=== PATIENT | female | born 1995 | race Caucasian/White ===

== ENCOUNTER → 2020-12-24 | Outpatient (CLI) | payer OTHER ==
--- NOTE | 2020-12-24 08:11 | US ---
EXAMINATION TYPE: US abdomen complete DATE OF EXAM: 12/24/2020 COMPARISON: NONE CLINICAL HISTORY: N92.6 Irregular menstruation, unspecified. Patient states no symptoms EXAM MEASUREMENTS: Liver Length: 16.0 cm Gallbladder Wall: 0.2 cm CBD: 0.4 cm Spleen: 10.5 cm Right Kidney: 11.3 x 4.5 x 4.1 cm Left Kidney: 11.6 x 4.5 x 4.0 cm Pancreas: wnl Liver: wnl Gallbladder: wnl Evidence for sonographic Dorsey's sign: no CBD: wnl Spleen: 2.7cm cyst Right Kidney: wnl Left Kidney: wnl Upper IVC: wnl Abd Aorta: wnl The liver is homogenous. The intrahepatic portion of the IVC and visualized abdominal aorta are with in normal limits. There is no evidence of cholelithiasis. Common bile duct is unremarkable. The vi sualized portions of the pancreas are homogenous. The spleen has incidental 2.7 cm lobulated thin-wa lled cyst with increased through transmission. Kidneys are symmetric and free of hydronephrosis. No renal lesions are seen. IMPRESSION: Incidental 2.7 cm thin-walled benign splenic cyst otherwise unremarkable study.
--- NOTE | 2020-12-24 08:12 | US ---
EXAMINATION TYPE: US pelvic complete DATE OF EXAM: 12/24/2020 COMPARISON: NONE CLINICAL HISTORY: pain. Irregular heavy periods, 12, para 5, miscarriage 7, history of tubal ligation TECHNIQUE: . Transabdominal sonographic images of the pelvis were acquired. Date of LMP: 2 weeks ago EXAM MEASUREMENTS: Uterus: 7.9 x 3.4 x 5.5 cm Endometrial Stripe: 0.6 cm Right Ovary: 3.1 x 1.5 x 1.7 cm Left Ovary: 2.9 x 2.1 x 2.3 cm 1. Uterus: anteverted, 1.3cm nabothian cyst 2. Endometrium: appears wnl 3. Right Ovary: wnl 4. Left Ovary: wnl 5. Bilateral Adnexa: wnl 6. Posterior cul-de-sac: wnl Normal size ovaries with scattered peripheral follicles. There is anteverted uterus. Tiny nabothian c yst towards end of study. No free fluid. IMPRESSION: Unremarkable study.
== END | disposition home or self-care (01) ==
LOC: RADUSWWP 06:59
PROVIDERS: ATTEND Family Medicine
DX: N92.6 Irregular menstruation, unspecified (principal)
CPT/HCPCS: 76700; 76856

== ENCOUNTER 2024-05-27 21:09 | Emergency (ER) | payer OTHER ==
[2024-05-27] MEDS: SODIUM CHLORIDE 0.9% 1,000 ML IV ONE (21:49)
[2024-05-27] MEDS: ONDANSETRON 4 MG/2 ML VIAL IVP STA (21:49)
[2024-05-27 21:57] LABS: Basophils # (A) 0.1 k/uL (0-0.2); Basophils % (A) 1 %; Eosinophils # (A) 0.2 k/uL (0-0.7); Eosinophils % (A) 2 %; HCT 35.3 % (34.0-46.0); Lymphocytes # (A) 2.4 k/uL (1.0-4.8); Lymphocytes % (A) 35 %; MCH 29.3 pg (25.0-35.0); MCHC 34.1 g/dL (31.0-37.0); MCV 86.1 fL (80.0-100.0); Mean Platelet Volume 8.7; Monocytes # (A) 0.4 k/uL (0-1.0); Monocytes % (A) 5 %; Neutrophils # (A) 3.8 k/uL (1.3-7.7); Neutrophils % (A) 55 %; Platelet Count 215 k/uL (150-450); RDW 13.2 % (11.5-15.5)
[2024-05-27 22:00] LABS: Appearance,Urine Cloudy (Clear); Bilirubin,Urine Negative (Negative); Blood,Urine Negative (Negative); Color,Urine Colorless; Glucose,Urine (UA) Negative (Negative); Ketones,Urine Negative (Negative); Leukocyte Esterase,Urine Large (Negative); Mucus,Urine Rare /hpf; Nitrite,Urine Negative (Negative); Protein,Urine Negative (Negative); RBC,Urine <1 /hpf (0-5); Specific Gravity,Urine 1.018 (1.001-1.035); Squamous Epithelial Cell,Urine 5 /hpf (0-4); Urobilinogen,Urine <2.0 mg/dL (<2.0); WBC,Urine 5 /hpf (0-5)
[2024-05-27 22:14] LABS: ALT 25 U/L (4-34); AST 24 U/L (14-36); African American GFR (CKD) >90 (>60 ml/min/1.73 sqM); Albumin 4.2 g/dL (3.5-5.0); Alkaline Phosphatase 48 U/L (38-126); Anion Gap 10 mmol/L; Blood Urea Nitrogen 18 mg/dL (7-17); Calcium 9.4 mg/dL (8.4-10.2); Carbon Dioxide 27 mmol/L (22-30); Chloride 100 mmol/L (98-107); Glucose 98 mg/dL (74-99); Lipase 70 U/L (23-300); Non-African American GFR(CKD) >90 (>60 ml/min/1.73 sqM); Sodium 137 mmol/L (137-145); Total Bilirubin 0.9 mg/dL (0.2-1.3); Total Protein 7.2 g/dL (6.3-8.2)
--- NOTE | 2024-05-27 23:07 | ED ---
Abdominal Pain HPI - General Chief Complaint: Abdominal Pain Stated Complaint: Abd Pain Time Seen by Provider: 05/27/24 21:22 Source: patient Mode of arrival: ambulatory Limitations: no limitations - History of Present Illness Initial Comments: 29-year-old female presenting with chief complaint of "I think I might be ". Patient reports that she has had some lower abdominal discomfort for 5 days. Her menstrual cycle is late. She is having nausea no vomiting. No abnormal vaginal discharge. States that she has gained some weight and her breasts are tender. She does have history of tubal ligation. No fever. No diarrhea. She does report frequent urination. No dysuria or hematuria. - Related Data Allergies Allergy/AdvReac Type Severity Reaction Status Date / Time amoxicillin Allergy Rash/Hives Verified 05/27/24 21:14 Penicillins Allergy Rash/Hives Verified 05/27/24 21:14 Review of Systems ROS Statement: Those systems with pertinent positive or pertinent negative responses have been documented in the HPI. ROS Other: All systems not noted in ROS Statement are negative. Past Medical History Past Medical History: COPD History of Any Multi-Drug Resistant Organisms: None Reported Additional Past Surgical History / Comment(s): facial sx Past Psychological History: ADD/ADHD, PTSD Smoking Status: Former smoker Past Alcohol Use History: None Reported Past Drug Use History: None Reported General Exam Limitations: no limitations General appearance: alert, in no apparent distress Head exam: Present: atraumatic, normocephalic, normal inspection Eye exam: Present: normal appearance, EOMI Neck exam: Present: normal inspection. Absent: meningismus Respiratory exam: Present: normal lung sounds bilaterally. Absent: respiratory distress, wheezes, rales, rhonchi, stridor Cardiovascular Exam: Present: regular rate, normal rhythm, normal heart sounds. Absent: systolic murmur, diastolic murmur, rubs, gallop, clicks GI/Abdominal exam: Present: soft. Absent: distended, tenderness, guarding, rebound, rigid Neurological exam: Present: alert, oriented X3 Psychiatric exam: Present: normal affect, normal mood Skin exam: Present: warm, dry, normal color Course Vital Signs 05/27/24 05/28/24 21:11 01:06 Temperature 97.5 F L 98.2 F Pulse Rate 101 H 60 Respiratory 20 18 Rate Blood Pressure 115/81 112/73 O2 Sat by Pulse 95 100 Oximetry Medical Decision Making - Lab Data Result diagrams: 05/27/24 21:44 05/27/24 21:44 Lab Results 05/27/24 05/27/24 05/27/24 Range/Units 21:44 21:44 21:44 WBC 7.0 (3.8-10.6) k/uL RBC 4.10 (3.80-5.40) m/uL Hgb 12.0 (11.4-16.0) gm/dL Hct 35.3 (34.0-46.0) % MCV 86.1 (80.0-100.0) fL MCH 29.3 (25.0-35.0) pg MCHC 34.1 (31.0-37.0) g/dL RDW 13.2 (11.5-15.5) % Plt Count 215 (150-450) k/uL MPV 8.7 Neutrophils % 55 % Lymphocytes % 35 % Monocytes % 5 % Eosinophils % 2 % Basophils % 1 % Neutrophils # 3.8 (1.3-7.7) k/uL Lymphocytes # 2.4 (1.0-4.8) k/uL Monocytes # 0.4 (0-1.0) k/uL Eosinophils # 0.2 (0-0.7) k/uL Basophils # 0.1 (0-0.2) k/uL Sodium (137-145) mmol/L Potassium (3.5-5.1) mmol/L Chloride (98-107) mmol/L Carbon Dioxide (22-30) mmol/L Anion Gap mmol/L BUN (7-17) mg/dL Creatinine (0.52-1.04) mg/dL Est GFR (CKD-EPI)AfAm (>60 ml/min/1.73 sqM) Est GFR (CKD-EPI)NonAf (>60 ml/min/1.73 sqM) Glucose (74-99) mg/dL Plasma Lactic Acid Moisés (0.7-2.0) mmol/L Calcium (8.4-10.2) mg/dL Total Bilirubin (0.2-1.3) mg/dL AST (14-36) U/L ALT (4-34) U/L Alkaline Phosphatase (38-126) U/L Total Protein (6.3-8.2) g/dL Albumin (3.5-5.0) g/dL Lipase (23-300) U/L Urine Color Colorless Urine Appearance Cloudy H (Clear) Urine pH 7.0 (5.0-8.0) Ur Specific [place] 1.018 (1.001-1.035) Urine Protein Negative (Negative) Urine Glucose (UA) Negative (Negative) Urine Ketones Negative (Negative) Urine Blood Negative (Negative) Urine Nitrite Negative (Negative) Urine Bilirubin Negative (Negative) Urine Urobilinogen <2.0 (<2.0) mg/dL Ur Leukocyte Esterase Large H (Negative) Urine RBC <1 (0-5) /hpf Urine WBC 5 (0-5) /hpf Ur Squamous Epith Cells 5 H (0-4) /hpf Urine Mucus Rare H (None) /hpf Urine HCG, Qual Not Detected (Not Detectd) 05/27/24 05/27/24 Range/Units 21:44 21:44 WBC (3.8-10.6) k/uL RBC (3.80-5.40) m/uL Hgb (11.4-16.0) gm/dL Hct (34.0-46.0) % MCV (80.0-100.0) fL MCH (25.0-35.0) pg MCHC (31.0-37.0) g/dL RDW (11.5-15.5) % Plt Count (150-450) k/uL MPV Neutrophils % % Lymphocytes % % Monocytes % % Eosinophils % % Basophils % % Neutrophils # (1.3-7.7) k/uL Lymphocytes # (1.0-4.8) k/uL Monocytes # (0-1.0) k/uL Eosinophils # (0-0.7) k/uL Basophils # (0-0.2) k/uL Sodium 137 (137-145) mmol/L Potassium 4.0 (3.5-5.1) mmol/L Chloride 100 (98-107) mmol/L Carbon Dioxide 27 (22-30) mmol/L Anion Gap 10 mmol/L BUN 18 H (7-17) mg/dL Creatinine 0.81 (0.52-1.04) mg/dL Est GFR (CKD-EPI)AfAm >90 (>60 ml/min/1.73 sqM) Est GFR (CKD-EPI)NonAf >90 (>60 ml/min/1.73 sqM) Glucose 98 (74-99) mg/dL Plasma Lactic Acid Moisés 0.6 L (0.7-2.0) mmol/L Calcium 9.4 (8.4-10.2) mg/dL Total Bilirubin 0.9 (0.2-1.3) mg/dL AST 24 (14-36) U/L ALT 25 (4-34) U/L Alkaline Phosphatase 48 (38-126) U/L Total Protein 7.2 (6.3-8.2) g/dL Albumin 4.2 (3.5-5.0) g/dL Lipase 70 (23-300) U/L Urine Color Urine Appearance (Clear) Urine pH (5.0-8.0) Ur Specific [place] (1.001-1.035) Urine Protein (Negative) Urine Glucose (UA) (Negative) Urine Ketones (Negative) Urine Blood (Negative) Urine Nitrite (Negative) Urine Bilirubin (Negative) Urine Urobilinogen (<2.0) mg/dL Ur Leukocyte Esterase (Negative) Urine RBC (0-5) /hpf Urine WBC (0-5) /hpf Ur Squamous Epith Cells (0-4) /hpf Urine Mucus (None) /hpf Urine HCG, Qual (Not Detectd) Disposition Clinical Impression: Abdominal pain Disposition: HOME SELF-CARE Condition: Fair Instructions (If sedation given, give patient instructions): Abdominal Pain (ED) Additional Instructions: Follow-up with PCP. Report back to ER with any new or worsening symptoms. Is patient prescribed a controlled substance at d/c from ED?: No Referrals: None,Stated [Primary Care Provider] - 1-2 days Forms: Area PCPs Time of Disposition: 00:39
[2024-05-28 01:07] VITALS: BP 112/73; PULSE 60; RESP 18; TEMP 98.2
--- NOTE | 2024-05-28 03:24 | US ---
EXAM: US Pelvis Transvaginal CLINICAL HISTORY: Pelvic pain TECHNIQUE: Real-time transvaginal pelvic ultrasound with image documentation. Transvaginal imaging was used for better evaluation of the endometrium and adnexa. COMPARISON: Ultrasound pelvis 12/24/2020 FINDINGS: Uterus/cervix: The uterus measures 8.5 x 3.8 x 4.3 cm. The endometrial stripe measures 6.8 mm. There is trace fluid in the endometrial canal at the fundus. No focal abnormality in the endometrium or abnormal vascular flow. Incidental nabothian cysts noted involving the posterior cervix measuring up to 1.5 cm. No myometrial mass. Right ovary: The right ovary measures 3.6 x 1.4 x 1.5 cm. There is a hypoechoic area in the right ovary measuring 1.7 x 1.1 x 1.3 cm with low- level echoes. Marginal vascular flow noted. No ovarian torsion. No adnexal mass. Left ovary: The left ovary measures 2.9 x 2.3 x 2.1 cm. No evidence for torsion. No adnexal mass. Free fluid: No free fluid. Bladder: Empty bladder which cannot be evaluated with this probe. IMPRESSION: 1. The endometrial stripe measures 6.8 mm. There is trace fluid in the endometrial canal at the fundus. No focal abnormality in the endometrium or abnormal vascular flow. 2. There is a complex structure involving the right ovary measuring 1.7 x 1.3 cm with heterogeneous low-level echoes. ACR White Paper guidelines (Lalo, et. al. Radiology 2010;256(3):943-954) suggest initial pelvic ultrasound follow-up in 6-12 weeks. Then, if lesion is persistent and follow-up with ultrasound or MRI does not confirm endometrioma or dermoid, surgical evaluation should be considered. 3. No evidence for ovarian torsion bilaterally. 4. Incidental nabothian cysts.
== END 2024-05-28 01:07 | disposition home or self-care (01) ==
LOC: EC 21:09
DX: R10.30 Lower abdominal pain, unspecified (principal); Z88.0 Allergy status to penicillin; Z87.891 Personal history of nicotine dependence
CPT/HCPCS: 36415; 80053; 83605; 83690; 85025; 81001; 81025; 93975; 76830; 99284; 96374; 96361; J2405